=== PATIENT | female | born 1965 | race Asian ===

== ENCOUNTER → 2017-07-13 | Outpatient (CLI) | payer MEDICAID ==
[2017-07-13 10:44] LABS: C-REACTIVE PROTEIN 0.7 mg/dL (0.0-0.9); URIC ACID 5.1 mg/dL (2.5-6.2)
[2017-07-14 06:36] LABS: RHEUMATOID FACTOR-SCREEN <15 IU/mL (0-29)
== END ==
LOC: COL.LAB 09:58
PROVIDERS: Physician Assistant
DX: M25.531 Pain in right wrist (principal); M25.561 Pain in right knee

== ENCOUNTER → 2017-10-22 | Outpatient (CLI) | payer MEDICAID | LOC: MC.RAD 13:59 | DX: Z12.31 Encounter for screening mammogram for malignant neoplasm of breast (principal) ==

== ENCOUNTER → 2023-09-26 | Outpatient (CLI) | payer OTHER | LOC: COL.RAD 07:22 | DX: K76.0 Fatty (change of) liver, not elsewhere classified (principal); K80.20 Calculus of gallbladder without cholecystitis without obstruction ==